=== PATIENT | female | born 1970 | race Two or more races ===

== ENCOUNTER 2024-08-18 10:54 | Outpatient (REF) | payer OTHER, SELFPAY ==
--- NOTE | 2024-08-18 10:07 | CRLHL7_ITS ---
For Patients: As a result of the Century Cures Act, medical imaging exams and procedure reports are released immediately into your electronic medical record. You may view this report before your referring provider. If you have questions, please contact your health care provider. BILATERAL DIGITAL SCREENING MAMMOGRAM WITH COMPUTER-AIDED DETECTION AND TOMOSYNTHESIS CLINICAL HISTORY: Routine screening exam. COMPARISON: 07/18/18, 05/28/17, 05/15/16. TECHNIQUE: Digital mammogram in CC and MLO projections including computer-aided detection (CAD). Tomosynthesis was used in this interpretation. BREAST COMPOSITION: There are scattered areas of fibroglandular density. FINDINGS: RIGHT Breast: Focal asymmetric density within the upper inner quadrant 8 cm from the nipple, possible lymph node. LEFT Breast: No suspicious findings. IMPRESSION: RIGHT breast asymmetry/mass. RECOMMENDATIONS: Additional mammographic views of the RIGHT breast including 3D spot compression CC/MLO. RIGHT breast ultrasound may also be required. BI-RADS Category 0: Incomplete: Need Additional Imaging Evaluation The [facility] will contact the patient. A lay language report of this examination will be provided to the patient. Dictated by Duong George MD @ 08/24/2024 12:52:44 PM [email or web address]/Dictated by: Duong George MD @ 08/24/2024 12:53:00 PM (Electronically Signed)
== END 2024-08-18 10:55 | disposition home or self-care (01) ==
LOC: MAMMO 10:54
PROVIDERS: Visit Provider Midwife
DX: Z12.31 Encounter for screening mammogram for malignant neoplasm of breast (principal); N63.10 Unspecified lump in the right breast, unspecified quadrant
CPT/HCPCS: 77063; 77067; T1013

== ENCOUNTER 2024-09-02 08:34 | Outpatient (CLI) | payer OTHER, SELFPAY ==
--- NOTE | 2024-09-02 08:45 | CRLHL7_ITS ---
For Patients: As a result of the Cures Act, medical imaging exams and procedure reports are released immediately into your electronic medical record. You may view this report before your referring provider. If you have questions, please contact your health care provider. DIGITAL DIAGNOSTIC RIGHT MAMMOGRAM USING TOMOSYNTHESIS AND COMPUTER-AIDED DETECTION RIGHT BREAST ULTRASOUND CLINICAL HISTORY: RIGHT breast mass/asymmetry. COMPARISON: 08/18/2024. TECHNIQUE: Digital RIGHT mammogram in two projections. Tomosynthesis and CAD were used in this interpretation. Real-time ultrasound imaging of RIGHT breast with imaging documentation. BREAST COMPOSITION: There are scattered areas of fibroglandular density. FINDINGS: 3D spot compression CC/MLO RIGHT breast mammogram images submitted. Persistent density within the upper inner quadrant RIGHT breast, probable lymph node. No architectural distortion. Targeted RIGHT breast ultrasound performed in the upper inner quadrant. At 1 o`clock 9 cm from the nipple, normal breast tissue is present. No suspicious findings. IMPRESSION: No evidence of malignancy. Incidental benign intramammary lymph node. RECOMMENDATIONS: Routine screening mammography. A lay language report of this examination will be provided to the patient. BI-RADS Category 2: Benign Dictated by Duong George MD @ 09/02/2024 9:49:37 AM jj/Dictated by: Duong George MD @ 09/02/2024 9:49:00 AM (Electronically Signed)
--- NOTE | 2024-09-02 09:15 | CRLHL7_ITS ---
For Patients: As a result of the Cures Act, medical imaging exams and procedure reports are released immediately into your electronic medical record. You may view this report before your referring provider. If you have questions, please contact your health care provider. PLEASE SEE DIGITAL DIAGNOSTIC RIGHT MAMMOGRAM PERFORMED SAME DAY [email or web address]/Dictated by: Duong George MD @ 09/02/2024 9:49:00 AM (Electronically Signed)
== END 2024-09-02 08:35 | disposition home or self-care (01) ==
LOC: MAMMO 08:35
PROVIDERS: Visit Provider Midwife
DX: N63.10 Unspecified lump in the right breast, unspecified quadrant (principal); R92.8 Other abnormal and inconclusive findings on diagnostic imaging of breast
CPT/HCPCS: 76642; 77065; T1013; G0279

== ENCOUNTER 2024-10-11 15:53 | Outpatient (CLI) | payer OTHER, SELFPAY ==
[2024-10-15 05:26] LABS: HPV Source Cervical; HPV, High Risk by TMA Not Detected
== END 2024-10-11 15:54 | disposition home or self-care (01) ==
PROVIDERS: Visit Provider Midwife
DX: Z12.4 Encounter for screening for malignant neoplasm of cervix (principal)
CPT/HCPCS: 87624; 87625; 88141; 88142